=== PATIENT | male | born 1985 | race Caucasian/White ===

== ENCOUNTER 2018-04-03 08:06 | Emergency (ER) | payer OTHER ==
[~2018-04-03] VITALS: Ht 180.3 cm; Wt 102.1 kg
[2018-04-03 08:12] VITALS: BP 149/81
--- NOTE | 2018-04-03 08:15 | NUR ---
Pt taken to bed 7.
--- NOTE | 2018-04-03 08:30 | NUR ---
32 YO M TO ER FOR ALLERGIC REATION TO UNKNOWN SUBSTANCE. PT STATE HE A WAS UNLOADING BOXES AT WORK AND HIS EYES STARTED ITICHING. BILAT MILD EYE SWELLING, REDNESS. PT STATES ITICY NOSE AND THROAT WITH LEFT SIDED CHEST TIGHTNESS. LS CLEAR THROUGH O2 SAT AT 97% ON RA. BS ACTIVE X4. NO OTHER MEDICAL COMPLAINTS. ER MD MADE AWARE. WILL CONTINUE TO MONITOR.
--- NOTE | 2018-04-03 08:35 | NUR ---
Patient being evaluated by physician at bedside.
[2018-04-03] MEDS ORDERED: FAMOTIDINE 20 MG TAB PO ONE (09:10)
[2018-04-03] MEDS ORDERED: predniSONE 20 MG TAB PO ONE (09:10)
[2018-04-03 09:57] VITALS: BP 129/75
--- NOTE | 2018-04-03 09:57 | NUR ---
Patient discharged with v/s stable. Written and verbal after care instructions given and explained. Patient alert, oriented and verbalized understanding of instructions. Ambulatory with steady gait. All questions addressed prior to discharge. ID band removed. Patient advised to follow up with PMD. Rx of PEPCID, PREDNISONE, KETOROLAC TROMERTHAMINE given. Patient educated on indication of medication including possible reaction and side effects. Opportunity to ask questions provided and answered.
== END 2018-04-03 09:57 | disposition home or self-care (01) ==
LOC: MED 08:06
DX: H10.13 Acute atopic conjunctivitis, bilateral (principal); J30.9 Allergic rhinitis, unspecified; R09.89 Other specified symptoms and signs involving the circulatory and respiratory systems
CPT/HCPCS: 99283; J7512

== ENCOUNTER 2018-10-28 06:55 | Emergency (ER) | payer OTHER ==
[~2018-10-28] VITALS: Ht 180.3 cm; Wt 104.3 kg
[2018-10-28 07:02] VITALS: BP 130/78
[2018-10-28 08:12] LABS: BASOPHILS % (AUTO) 0.4 % (0.0-2.0); EOSINOPHILS # (AUTO) 0.1 K/uL (0-0.4); EOSINOPHILS % (AUTO) 1.3 % (0.0-4.0); HEMATOCRIT 47.4 % (36-52); HEMOGLOBIN 15.5 g/dL (12.0-18.0); LYMPHOCYTES # (AUTO) 2.7 K/uL (2.0-11.5); LYMPHOCYTES % (AUTO) 28.8 % (20.5-51.1); MEAN CORPUSCULAR HEMOGLOBIN 27 pg (27-31); MEAN CORPUSCULAR HGB CONC 33 g/dL (33-37); MEAN CORPUSCULAR VOLUME 82.4 fL (80-94); MONOCYTES # (AUTO) 0.7 K/uL (0.8-1.0); NEUTROPHILS # (AUTO) 5.7 K/uL (1.8-7.7); NEUTROPHILS % (AUTO) 61.5 % (42.2-75.2); PLATELET COUNT (AUTO) 229 K/uL (140-450); RED BLOOD CELL COUNT(AUTO) 5.75 MIL/uL (4.20-6.10); RED CELL DISTRIBUTION WIDTH 14.3 % (11.6-13.7); WHITE BLOOD COUNT (AUTO) 9.2 K/uL (4.8-10.8)
[2018-10-28 08:41] LABS: ANION GAP 14.9 (8-16); CARBON DIOXIDE 26.7 mmol/L (21-32); POTASSIUM 3.6 mmol/L (3.5-5.1)
[2018-10-28 08:43] LABS: TOTAL BILIRUBIN 0.4 mg/dL (0.0-1.0)
[2018-10-28 09:32] LABS: ALBUMIN 4.3 g/dL (3.4-5.0)
[2018-10-28 10:18] VITALS: BP 117/72
== END 2018-10-28 10:19 | disposition home or self-care (01) ==
LOC: MED 06:55
DX: R00.2 Palpitations (principal)
CPT/HCPCS: 36415; 80053; 85025; 93005; 99284

== ENCOUNTER 2019-06-11 22:17 | Emergency (ER) | payer OTHER ==
[~2019-06-11] VITALS: Ht 180.3 cm; Wt 108.0 kg
[2019-06-11 22:22] VITALS: BP 140/90
--- NOTE | 2019-06-11 22:24 | NUR ---
TO LOBBY A/W BED AMBULATORY
--- NOTE | 2019-06-12 02:02 | NUR ---
AMBULATED TO ER BED 7
--- NOTE | 2019-06-12 02:30 | NUR ---
33 YO M BIB SELF PRESENTS TO ED C/O 6/10 PRESSURE IN CHEST SINCE 1999 YESTERDAY EVENING. PT ALSO REPORTS FACIAL NUMBNESS AND TINGLING TO LEFT ARM AND SHAKING. PT DENIES N/V/D. -- PT AWAKE, AAOX4 WITH EVEN AND STEADY GAIT. ANSWERING QUESTIONS APPROPRIATELY. BEHAVIOR AGE APPROPRIATE. -- SKIN IS PINK/WARM/DRY. BREATHING EVEN, UNLABORED. PMH-- DENIES RX-- DENIES
--- NOTE | 2019-06-12 03:06 | NUR ---
EMT PERFORMING EKG AT BEDSIDE.
[2019-06-12 04:02] VITALS: BP 111/78
--- NOTE | 2019-06-12 04:02 | NUR ---
Patient discharged with v/s stable. Written and verbal after care instructions given and explained. Patient alert, oriented and verbalized understanding of instructions. Ambulatory with steady gait. All questions addressed prior to discharge. ID band removed. Patient advised to follow up with PMD. Rx of Aspirin given. Patient educated on indication of medication including possible reaction and side effects. Opportunity to ask questions provided and answered.
== END 2019-06-12 04:02 | disposition home or self-care (01) ==
LOC: MED 22:17
DX: R07.89 Other chest pain (principal); F41.9 Anxiety disorder, unspecified
CPT/HCPCS: 93005; 99282; 99283

== ENCOUNTER 2019-12-21 20:05 | Emergency (ER) | payer OTHER ==
[~2019-12-21] VITALS: Ht 180.3 cm; Wt 108.9 kg
[2019-12-21 20:25] VITALS: BP 116/60
--- NOTE | 2019-12-21 20:25 | NUR ---
TO BED # 09 AMBULATORY
--- NOTE | 2019-12-21 20:25 | NUR ---
VISUAL ACUITY BOTH EYE 20/15, LEFT EYE 20/15 RT EYE 20/70
[2019-12-21] MEDS ORDERED: TETRACAINE HCL/PF 0.5% OPTH 4 ML BTL OP ONE (20:50)
[2019-12-21] MEDS ORDERED: FLUORESCEIN OPTH STRIP 1 MG OP ONE (20:50)
--- NOTE | 2019-12-21 20:50 | NUR ---
GAVE EYE MEDICATIONS
--- NOTE | 2019-12-21 20:52 | NUR ---
LULU MOON WITH PT
--- NOTE | 2019-12-21 21:00 | NUR ---
PT RESTING IN BED IN POSITION OF COMFORT. BED LOW AND LOCKED, 1 SIDERAIL UP. VSS. WILL CONTINUE TO MONITOR
[2019-12-21 22:04] VITALS: BP 114/62
--- NOTE | 2019-12-21 22:04 | NUR ---
Patient discharged with v/s stable. Written and verbal after care instructions given and explained. Patient alert, oriented and verbalized understanding of instructions. Ambulatory with steady gait. All questions addressed prior to discharge. ID band removed. Patient advised to follow up with PMD. Rx of IBUPROFEN AND BLEPH-10% OPHTHALMIC SOLN. given. Patient educated on indication of medication including possible reaction and side effects. Opportunity to ask questions provided and answered.
== END 2019-12-21 22:04 | disposition home or self-care (01) ==
LOC: MED 20:05
DX: T15.02XA Foreign body in cornea, left eye, initial encounter (principal); Y99.0 Civilian activity done for income or pay; X58.XXXA Exposure to other specified factors, initial encounter; Y93.89 Activity, other specified; Y92.89 Other specified places as the place of occurrence of the external cause
CPT/HCPCS: 99283

== ENCOUNTER 2022-03-03 18:57 | Emergency (ER) | payer OTHER ==
[~2022-03-03] VITALS: Ht 180.3 cm; Wt 104.8 kg
[2022-03-03 19:16] VITALS: BP 133/84
--- NOTE | 2022-03-03 19:40 | NUR ---
36 yo m bibs w c/o of right leg numbness radiating to left arm and shoulder x 2 hours. pt took asprin 500mg with relief. States numbness comes and goes. vss. denies chest pain pmh: hernandez meds: denies nkda
[2022-03-03 21:15] VITALS: BP 133/84
--- NOTE | 2022-03-03 21:22 | NUR ---
Patient discharged with v/s stable. Written and verbal after care instructions given and explained. Patient alert, oriented and verbalized understanding of instructions. Ambulatory with steady gait. All questions addressed prior to discharge. ID band removed. Patient advised to follow up with PMD. Opportunity to ask questions provided and answered.
== END 2022-03-03 21:15 | disposition home or self-care (01) ==
LOC: MED 18:57
DX: F41.9 Anxiety disorder, unspecified (principal)
CPT/HCPCS: 93005; 99283

== ENCOUNTER 2022-03-05 14:39 | Emergency (ER) | payer OTHER ==
[~2022-03-05] VITALS: Ht 180.3 cm; Wt 102.1 kg
[2022-03-05 14:46] VITALS: BP 122/70
[2022-03-05] MEDS ORDERED: IBUPROFEN 600 MG TAB PO ONE (15:30)
[2022-03-05] MEDS ORDERED: BACITRACIN OINT 500 UNITS/GM PKT TP ONE (15:30)
[2022-03-05] MEDS ORDERED: BACI1PAC6 TP (15:32)
[2022-03-05] MEDS ORDERED: AMOX1TAB8 PO (15:32)
[2022-03-05] MEDS ORDERED: IBUP-2213 PO (15:32)
--- NOTE | 2022-03-05 17:02 | NUR ---
The patient's care was reviewed and supervised by Ria Payton RN.
--- NOTE | 2022-03-05 17:03 | NUR ---
Patient discharged with v/s stable. Written and verbal after care instructions given. Patient alert, oriented and verbalized understanding of instructions. Ambulatory with steady gait. All questions addressed prior to discharge. ID band removed. Patient advised to follow up with PMD. Rx of Amoxicillin/Potassium Clav, Bacitracin Ointment, Ibuprofen given. Opportunity to ask questions provided and answered.
== END 2022-03-05 17:03 | disposition home or self-care (01) ==
LOC: MED 14:39
DX: S81.852A Open bite, left lower leg, initial encounter (principal); R03.0 Elevated blood-pressure reading, without diagnosis of hypertension; Z79.1 Long term (current) use of non-steroidal anti-inflammatories (NSAID); Z79.2 Long term (current) use of antibiotics; W54.0XXA Bitten by dog, initial encounter; Y93.89 Activity, other specified; Y92.89 Other specified places as the place of occurrence of the external cause; Y99.8 Other external cause status
CPT/HCPCS: 90471; 90715; 99283

== ENCOUNTER 2022-03-07 13:27 | Emergency (ER) | payer OTHER ==
[~2022-03-07] VITALS: Ht 180.3 cm; Wt 103.5 kg
[~2022-03-07 13:27] MED LIST: AMOX1TAB8 PO; BACI1PAC6 TP; IBUP-2213 PO
[2022-03-07 13:42] VITALS: BP 105/63
--- NOTE | 2022-03-07 13:50 | NUR ---
NO NURSING INTERVENTION NEEDED. SEEN & TREATED BY DR CM.
[2022-03-07 13:56] VITALS: BP 105/63
--- NOTE | 2022-03-07 13:56 | NUR ---
Patient discharged BY DR CM with v/s stable. Written and verbal after care instructions given and explained. Patient verbalized understanding. Ambulatory with steady gait. All questions addressed prior to discharge. Advised to follow up with PMD.
== END 2022-03-07 13:56 | disposition home or self-care (01) ==
LOC: MED 13:27
DX: Z48.00 Encounter for change or removal of nonsurgical wound dressing (principal); Z79.1 Long term (current) use of non-steroidal anti-inflammatories (NSAID); Z79.2 Long term (current) use of antibiotics
CPT/HCPCS: 99281

== ENCOUNTER 2022-05-21 21:27 | Emergency (ER) | payer OTHER ==
[~2022-05-21] VITALS: Ht 180.3 cm; Wt 104.3 kg
[2022-05-21 21:36] VITALS: BP 120/71
--- NOTE | 2022-05-22 01:21 | NUR ---
Called - no show in lobby or outside.
--- NOTE | 2022-05-22 01:21 | NUR ---
PATIENT LEFT WITHOUT BEING SEEN BY DR. SHIRLEY. NO FURTHER CARE PROVIDED FOR PATIENT.
== END 2022-05-22 01:21 | disposition left against medical advice (07) ==
LOC: MED 21:27
DX: R21 Rash and other nonspecific skin eruption (principal); Z53.21 Procedure and treatment not carried out due to patient leaving prior to being seen by health care provider

== ENCOUNTER 2022-06-08 05:31 | Emergency (ER) | payer OTHER ==
[~2022-06-08] VITALS: Ht 180.3 cm; Wt 106.6 kg
[2022-06-08 05:35] VITALS: BP 126/76
--- NOTE | 2022-06-08 05:38 | NUR ---
TO LOBBY A/W BED AMBULATORY
--- NOTE | 2022-06-08 07:27 | NUR ---
Patient being evaluated by DR CM at TRIAGE ROOM. Addendum: 06/08/22 at 0734 by [facility] NO NURSING INTERVENTIONS NEEDED, SEEN & TREATED BY DR CM.
[2022-06-08 07:35] VITALS: BP 127/84
--- NOTE | 2022-06-08 07:35 | NUR ---
Patient discharged with v/s stable. Written and verbal after care instructions given and explained. Patient alert, oriented and verbalized understanding of instructions. Ambulatory with steady gait. All questions addressed prior to discharge. ID band removed. Patient advised to follow up with PMD. Rx of ATARAX HCL given. Patient educated on indication of medication including possible reaction and side effects. Opportunity to ask questions provided and answered.
[2022-06-08] MEDS ORDERED: ATA10 PO (07:36)
== END 2022-06-08 07:35 | disposition home or self-care (01) ==
LOC: MED 05:31
DX: R21 Rash and other nonspecific skin eruption (principal); Z79.899 Other long term (current) drug therapy
CPT/HCPCS: 99281

== ENCOUNTER 2023-10-01 15:51 | Emergency (ER) | payer OTHER ==
[~2023-10-01] VITALS: Ht 180.3 cm; Wt 101.2 kg
[~2023-10-01 15:51] MED LIST changes: +ATA10 PO; +BACI-418 TP; -BACI1PAC6 TP
[2023-10-01 16:16] VITALS: BP 119/69; PULSE 70; RESP 17; TEMP 98.2; O2SAT 99
[2023-10-01] MEDS ORDERED: ACETAMINOPHEN EXTRA STRENGTH 500 MG TAB PO ONE (16:40)
[2023-10-01] MEDS ORDERED: ACETAMINOPHEN EXTRA STRENGTH 500 MG TAB ONE ×2 (18:14→18:17)
[2023-10-01] MEDS ORDERED: BENZ-300 PO (19:05)
[2023-10-01] MEDS ORDERED: ACET-10509 PO (19:05)
[2023-10-01] MEDS ORDERED: IBUP-2213 PO (19:05)
[2023-10-01] MEDS ORDERED: BENZ200C4 PO (19:37)
[2023-10-01 19:59] LABS: FLU A ANTIGEN negative (NEGATIVE); FLU B ANTIGEN NEGATIVE (NEGATIVE)
== END 2023-10-01 19:43 | disposition home or self-care (01) ==
LOC: MED 15:51
DX: J06.9 Acute upper respiratory infection, unspecified (principal); Z20.822 Contact with and (suspected) exposure to COVID-19; Z79.899 Other long term (current) drug therapy; Z79.1 Long term (current) use of non-steroidal anti-inflammatories (NSAID); Z79.2 Long term (current) use of antibiotics
CPT/HCPCS: 87081; 99283

== ENCOUNTER 2023-10-04 17:37 | Emergency (ER) | payer OTHER ==
[~2023-10-04] VITALS: Ht 180.3 cm; Wt 101.2 kg
[~2023-10-04 17:37] MED LIST changes: +ACET-10509 PO; +BENZ-300 PO; +BENZ200C4 PO
[2023-10-04 18:40] VITALS: BP 117/90; PULSE 85; RESP 20; TEMP 98.4; O2SAT 97
[2023-10-04] MEDS ORDERED: diphenhydrAMINE 50 MG/ML VIAL IM ONE (19:05)
[2023-10-04] MEDS ORDERED: DEXAMETHASONE 10 MG/ML VIAL IM ONE (19:05)
[2023-10-04] MEDS ORDERED: FAMOTIDINE 20 MG TAB PO ONE (19:05)
[2023-10-04] MEDS ORDERED: FAMO-90 PO (19:09)
[2023-10-04] MEDS ORDERED: DIPH25TA53 PO (19:09)
== END 2023-10-04 19:37 | disposition home or self-care (01) ==
LOC: MED 17:37
DX: L50.9 Urticaria, unspecified (principal); T78.1XXA Other adverse food reactions, not elsewhere classified, initial encounter; Z79.899 Other long term (current) drug therapy; Z79.1 Long term (current) use of non-steroidal anti-inflammatories (NSAID); Z79.2 Long term (current) use of antibiotics; Z91.018 Allergy to other foods; X58.XXXA Exposure to other specified factors, initial encounter
CPT/HCPCS: 96372; 99284; J1100; J1200

== ENCOUNTER 2024-05-10 11:11 | Emergency (ER) | payer OTHER ==
[~2024-05-10] VITALS: Ht 180.3 cm; Wt 104.3 kg
[~2024-05-10 11:11] MED LIST changes: +DIPH25TA53 PO; +FAMO-90 PO
[2024-05-10 11:19] VITALS: BP 111/55; PULSE 72; RESP 17; TEMP 97.8; O2SAT 99
[2024-05-10] MEDS ORDERED: FAMO-92 PO (12:07)
== END 2024-05-10 12:17 | disposition home or self-care (01) ==
LOC: MED 11:11
DX: R06.6 Hiccough (principal); R14.0 Abdominal distension (gaseous); Z79.1 Long term (current) use of non-steroidal anti-inflammatories (NSAID); Z79.2 Long term (current) use of antibiotics; Z79.899 Other long term (current) drug therapy; Z91.018 Allergy to other foods
CPT/HCPCS: 99283

== ENCOUNTER → 2024-05-11 | Emergency (ER) | payer OTHER ==
[~2024-05-11] MED LIST changes: +FAMO-92 PO
== END | disposition left against medical advice (07) ==
LOC: MED 15:14
DX: R06.6 Hiccough (principal); Z53.21 Procedure and treatment not carried out due to patient leaving prior to being seen by health care provider